=== PATIENT | male | born 1990 | race Asian ===

== ENCOUNTER 2024-01-07 12:29 | Emergency (ER) | payer SELFPAY ==
[~2024-01-07] VITALS: Ht 180.3 cm; Wt 59.0 kg
[2024-01-07 12:35] VITALS: BP_SYST 115; PULSE 76; RESP 18; TEMP 98.2; O2SAT 98
== END 2024-01-07 12:58 | disposition left against medical advice (07) ==
LOC: SED 12:29
DX: Z11.3 Encounter for screening for infections with a predominantly sexual mode of transmission (principal)
CPT/HCPCS: 99281